=== PATIENT | female | born 1980 | race Caucasian/White ===

== ENCOUNTER 2018-07-27 00:51 | Emergency (ER) | payer OTHER ==
--- NOTE | 2018-07-27 01:17 | ED ---
Laceration/Wound HPI - HPI Summary HPI Summary: 38-year-old female presents with laceration near left eye. States she had some alcohol and by accident fell and landed on her face causing a laceration near her left eye. No loss consciousness. No nausea or vomiting. No headache. No dizziness. No change in vision. No neck pain. The area bled a lot per patient. The area is not actively bleeding. Tetanus up-to-date. no nose bleed. no other injury. only pain around laceration. not on blood thinners. she fell to the ground from standing. - History of Current Complaint Stated Complaint: LAC ON LT EYE Pain Intensity: 0 - Allergy/Home Medications Allergies/Adverse Reactions: Allergies Allergy/AdvReac Type Severity Reaction Status Date / Time No Known Allergies Allergy Verified 07/27/18 00:54 PMH/Surg Hx/FS Hx/Imm Hx Endocrine/Hematology History: Denies: Hx Anticoagulant Therapy Cardiovascular History: Denies: Hx Myocardial Infarction Infectious Disease History: No Infectious Disease History: Denies: Traveled Outside the [place] in Last 30 Days - Family History Known Family History: Positive: Non-Contributory - Social History Alcohol Use: Occasionally Substance Use Type: Reports: None Review of Systems Negative: Fever Negative: Chest Pain Negative: Shortness Of Breath Positive: Myalgia - laceration All Other Systems Reviewed And Are Negative: Yes Physical Exam Triage Information Reviewed: Yes Vital Signs On Initial Exam: Initial Vitals Temp Pulse Resp BP Pulse Ox 97.8 F 105 16 158/77 98 07/27/18 00:52 07/27/18 00:52 07/27/18 00:52 07/27/18 00:52 07/27/18 00:52 Vital Signs Reviewed: Yes Appearance: Positive: Well-Appearing Skin: Positive: Warm, Dry, Other - 2cm superficial laceration under left eyebrow Head/Face: Positive: Normal Head/Face Inspection Eyes: Positive: Normal, EOMI, SARAH, Conjunctiva Clear, Other: - nontender under and above left eye ENT: Positive: Normal ENT inspection, Pharynx normal, TMs normal Respiratory/Lung Sounds: Positive: Clear to Auscultation, Breath Sounds Present Cardiovascular: Positive: Normal, RRR Musculoskeletal: Positive: Normal Neurological: Positive: Sensory/Motor Intact, Alert, Oriented to Person Place, Time, CN Intact II-III Psychiatric: Positive: Normal Procedures - Laceration/Wound Repair 1 Location: face Description: Linear Length, Depth and Shape: 2cm superficial Irrigated w/ Saline (ccs): 100 Closure: Skin Adhesive, SteriStrips Diagnostics - Vital Signs Vital Signs Temp Pulse Resp BP Pulse Ox 07/27/18 00:52 97.8 F 105 16 158/77 98 - Laboratory Lab Statement: Any lab studies that have been ordered have been reviewed, and results considered in the medical decision making process. Laceration Repair Course/Dx - Course Course Of Treatment: 38-year-old female presents with laceration near left eye. States she had some ETOH and by accident fell and landed on her face near her left eye. No loss consciousness. No nausea or vomiting. No headache. No dizziness. No change in vision. No neck pain. The area bled a lot per patient. The area is not actively bleeding. Tetanus up-to-date. On exam has 2 cm superficial laceration under left eyebrow. Clean area and placed glue and Steri-Strips. Normal neuro exam. EOMI and no step off. At this point will not get a CT. Warned if vomiting or worsening headache or any other symptoms return for potential CT. gave concussion precautions. Patient understands agrees with plan. - Differential Dx Differental Diagnoses: Abrasion, Avulsion, Laceration - Clinical Impression Provider Diagnoses: Facial laceration, Head injury Discharge - Sign-Out/Discharge Documenting (check all that apply): Patient Departure - Discharge Plan Condition: Good Disposition: HOME Patient Education Materials: Head Injury (ED), Skin Adhesive Care (ED) Referrals: Erik MCGRAW,Jovanni Lomas [Primary Care Provider] - Additional Instructions: Place ice on area Take Tylenol or ibuprofen for pain as needed every 6 hours Keep dry for 24 hours Glue will fall off on own Avoid scrubbing area Use sunscreen on area after laceration has healed Follow up with primary within 5 days Return to ED if develop any signs of infection, vomiting, severe headache or any new or worsening symptoms - Billing Disposition and Condition Condition: GOOD Disposition: Home
[2018-07-27 01:40] VITALS: BP 121/77
== END 2018-07-27 01:40 | disposition home or self-care (01) ==
LOC: ED 00:51
DX: S05.32XA Ocular laceration without prolapse or loss of intraocular tissue, left eye, initial encounter (principal); S09.90XA Unspecified injury of head, initial encounter; W19.XXXA Unspecified fall, initial encounter; Y92.9 Unspecified place or not applicable
CPT/HCPCS: 12011; 99282